=== PATIENT | female | born 1935 | race Caucasian/White ===

== ENCOUNTER 2019-02-11 18:18 | Inpatient (IN) | payer OTHER ==
[2019-02-11 19:07] LABS: PLATELET COUNT 427 10^3/uL (150-400)
--- NOTE | 2019-02-11 19:18 | EDPHY ---
H & P Stated Complaint: multiple complaints, here for admission for work up Time Seen by Provider: 02/11/19 18:50 HPI/ROS: CHIEF COMPLAINT: Multiple complaints, sent to the ER for admission HISTORY OF PRESENT ILLNESS: 83-year-old female medical history significant for hypertension, insomnia, self describes as highly active which has been progressively decreasing for the past several months, proximal August 2018 she describes that she typically use toe walk a brisk 3 miles however now only walks 1 mi to per day. She notes insomnia, typically sleeps 3-4 hr per day. Was started on Ambien 2 weeks ago however this is not assisted. She has had decreased appetite in describes being "this interested in life". She had outpatient evaluation by her PCP she saw today and recommend she go to the ER for evaluation admission to the hospital. She was noted to be hyponatremic 128 on last blood draw. She has been water restricting. PRIMARY CARE PROVIDER: Gary Marie at [facility] Medical REVIEW OF SYSTEMS: 10 systems reviewed and negative with the exception of the elements mentioned in the history of present illness PAST MEDICAL & SURGICAL HISTORY: Hypertension. Insomnia. SOCIAL HISTORY:Lives with 50-year-old son. No alcohol no drug use. PHYSICAL EXAM (Prior to examination, patient consented to physical exam, hands were washed and my usual and customary physical exam procedures followed) 1) GENERAL: Well-developed, well-nourished, alert and oriented. Somnolent. 2) HEAD: Normocephalic, atraumatic 3) HEENT: Pupils equal, round, reactive to light bilaterally. Sclera anicteric. Nasopharynx, oropharynx, clear, no lesions. Dry mucous membranes. Ears bilaterally with normal tympanic membranes. 4) NECK: Full range of motion, no meningeal signs. 5) LUNGS: Clear auscultation bilaterally, no wheezes, no rhonchi, no retractions. 6) HEART: Regular rate and rhythm, no murmur, no heave, no gallop. 7) ABDOMEN: No guarding, no rebound, no focal tenderness, negative McBurney's, negative Alarcon's, negative Rovsing's, negative peritoneal sign, 8) MUSCULOSKELETAL: Moving all extremities, no focal areas of tenderness, no obvious trauma. No peripheral edema or discoloration. 9) BACK: No CVA tenderness, no midline vertebral tenderness, no fluctuance, no step-off, no obvious trauma, no visual or palpable abnormality. 10) SKIN: No rash, no petechiae. 11) Psychiatric: Patient is oriented X 3, there is no agitation. She is somnolent. 12) NEURO: Awake, alert, and oriented to person, place and time. Answers questions appropriately. There were no obvious focal neurologic abnormalities. No cerebellar dysfunction. Cranial nerves 2 through to 12 intact. Normal steady gait. Upper and lower extremities bilaterally with strength 5 / 5, reflexes 2+. DIFFERENTIAL DIAGNOSIS: In no particular order including but not limited to cardiac dysrhythmia, electrolyte imbalance, hyponatremia, infectious etiology - Medical/Surgical History Hx Asthma: No Hx Chronic Respiratory Disease: No Hx Diabetes: No Hx Cardiac Disease: Yes Hx Renal Disease: No Hx Cirrhosis: No Hx Alcoholism: No Hx HIV/AIDS: No Hx Splenectomy or Spleen Trauma: No Other PMH: HTN, insomnia - Social History Smoking Status: Never smoked Constitutional: Initial Vital Signs Temperature (C) 36.7 C 02/11/19 18:21 Heart Rate 71 02/11/19 18:21 Respiratory Rate 18 02/11/19 18:21 Blood Pressure 152/92 H 02/11/19 18:21 O2 Sat (%) 96 02/11/19 18:21 O2 Delivery Mode Room Air Allergies/Adverse Reactions: No Known Allergies Allergy (Verified 02/11/19 18:20) Home Medications: Medication Instructions Recorded Diovan 07/29/11 Ambien 02/11/19 Effexor Xr 02/11/19 amLODIPine BESYLATE 02/11/19 Medical Decision Making ED Course/Re-evaluation: 7:17 p.m.: Critical lab value sodium 118 called from laboratory at this time. Patient remains water restricted, no IV fluids will be given at this time. Checking further diagnostic studies and will plan on admission. Care of patient under supervision of secondary supervising physician Dr Bush with whom I discussed case. 8:10 p.m.: Consultation Dr. Evelina Garcia who will admit patient 8:20 p.m.: Consultation with Nephrology Dr. Jalloh who will consult - Data Points Laboratory Results: Laboratory Results 02/11/19 18:47 02/11/19 18:47 02/11/19 02/11/19 18:47 18:47 WBC 8.81 10^3/uL 10^3/uL (3.80-9.50) RBC 4.61 10^6/uL 10^6/uL (4.18-5.33) Hgb 13.2 g/dL g/dL (12.6-16.3) Hct 37.6 % L % (38.0-47.0) MCV 81.6 fL fL (81.5-99.8) MCH 28.6 pg pg (27.9-34.1) MCHC 35.1 g/dL g/dL (32.4-36.7) RDW 12.4 % % (11.5-15.2) Plt Count 427 10^3/uL H 10^3/uL (150-400) MPV 8.7 fL fL (8.7-11.7) Neut % (Auto) 60.8 % % (39.3-74.2) Lymph % (Auto) 27.1 % % (15.0-45.0) [place] % (Auto) 10.4 % % (4.5-13.0) Eos % (Auto) 0.5 % L % (0.6-7.6) Baso % (Auto) 0.6 % % (0.3-1.7) Nucleat RBC Rel Count 0.0 % % (0.0-0.2) Absolute Neuts (auto) 5.36 10^3/uL 10^3/uL (1.70-6.50) Absolute Lymphs (auto) 2.39 10^3/uL 10^3/uL (1.00-3.00) Absolute Monos (auto) 0.92 10^3/uL H 10^3/uL (0.30-0.80) Absolute Eos (auto) 0.04 10^3/uL 10^3/uL (0.03-0.40) Absolute Basos (auto) 0.05 10^3/uL 10^3/uL (0.02-0.10) Absolute Nucleated RBC 0.00 10^3/uL 10^3/uL (0-0.01) Immature Gran % 0.6 % % (0.0-1.1) Immature Gran # 0.05 10^3/uL 10^3/uL (0.00-0.10) Sodium 118 mEq/L L* mEq/L (135-145) Potassium 3.6 mEq/L mEq/L (3.5-5.2) Chloride 83 mEq/L L mEq/L (97-110) Carbon Dioxide 23 mEq/l mEq/l (22-31) Anion Gap 12 mEq/L mEq/L (6-14) BUN 7 mg/dL mg/dL (7-23) Creatinine 0.5 mg/dL L mg/dL (0.6-1.0) Estimated GFR > 60 Glucose 105 mg/dL H mg/dL (70-100) Calcium 9.2 mg/dL mg/dL (8.5-10.4) Total Bilirubin 0.8 mg/dL mg/dL (0.1-1.4) Conjugated Bilirubin 0.1 mg/dL mg/dL (0.0-0.5) Unconjugated Bilirubin 0.7 mg/dL mg/dL (0.0-1.1) AST 26 IU/L IU/L (14-46) ALT 26 IU/L IU/L (9-52) Alkaline Phosphatase 83 IU/L IU/L (38-126) Total Protein 7.5 g/dL g/dL (6.3-8.2) Albumin 4.7 g/dL g/dL (3.5-5.0) TSH 2.200 uIU/mL uIU/mL (0.465-4.680) Ethyl Alcohol < 10 mg/dL mg/dL (0-10) Departure - Departure Disposition: [facility] Acute Clinical Impression: Hyponatremia
[2019-02-11] MEDS ORDERED: ACETAMINOPHEN 325 MG TAB PO PRN (20:32)
[2019-02-11] MEDS ORDERED: ONDANSETRON DISINTEGRATING 4 MG TAB PO PRN (20:32)
[2019-02-11] MEDS ORDERED: ONDANSETRON 4 MG/2 ML VIAL IVP PRN (20:32)
[2019-02-11] MEDS ORDERED: traZODone 50 MG TAB PO PRN (21:49)
--- NOTE | 2019-02-11 22:36 | GHP ---
[f rep st] HISTORY AND PHYSICAL DATE OF ADMISSION: 02/11/2019 CHIEF COMPLAINT: Weakness, fatigue, hyponatremia. HISTORY OF PRESENT ILLNESS: An 83-year-old female with insomnia, hypertension, depression, sent over by her PCP Dr. Marie for hyponatremia. Her lab was last checked 01/23/2019 and was 128. At that time, she was told she should restrict her fluids. She states she has been drinking less than a glass of water a day and has been drinking some Pedialyte. Has felt very fatigued and not like herself. Nauseated for the past 4 days. Of note, she was started on antidepressants about 10 days ago. Initially, Zoloft, which she did not like, thus was switched to Effexor. 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 She denies fevers, chills, or sweats. No dysuria. Her son is at bedside says she has been confused and not getting out of bed. REVIEW OF SYSTEMS: I completed a 10-point review of systems, negative except in HPI. PAST MEDICAL HISTORY: 1. UTI in October, followed by 6 weeks of diarrhea which resolved. 2. Insomnia. 3. Hypertension. 4. Depression. PAST SURGICAL HISTORY: None. FAMILY HISTORY: Hypertension. HOME MEDICATIONS: Effexor, Ambien, Norvasc. ALLERGIES: None. PHYSICAL EXAMINATION: VITAL SIGNS: Temperature 37.0, blood pressure 158/79, heart rate in the 60s, respirations 18, 96% on room air. GENERAL: She is a fatigued. HEENT: Dry mucous membranes. CV: Regular rate and rhythm. LUNGS: Clear. ABDOMEN: Soft, nontender. : No suprapubic tenderness. MUSCULOSKELETAL: She is moving all 4 extremities. SKIN: Warm, dry. Poor skin turgor. NEURO: She is alert and oriented x3, but slow to answer questions. LABS: 1. WBC 8, hemoglobin 13, hematocrit 37, platelets 427. UA negative. Urine studies pending. Sodium 118, potassium 3.6, chloride 86, anion gap 12, creatinine 0.5, glucose 105. Serum Osmo pending. LFTs within normal. TSH 2.2. 2. EKG is personally reviewed by me normal sinus rhythm, LVH. ASSESSMENT AND PLAN: 1. Symptomatic hyponatremia: Sodium 118. Suspect multifactorial with decreased solute and fluid intake. Was also started on Effexor about 10 days ago, which can cause SIADH. Urine studies. Dr. Jalloh with Nephrology has been consulted. Will follow up on labs and start fluids. Serial every 4 hours BMPs. 2. Insomnia. Trazodone. 3. Hypertension. Norvasc. 4. Depression. will need to work with her PCP on an agent that is helpful and not contributing to hyponatremia. 5. Diet: N.p.o. for now. 6. Deep venous thrombosis prophylaxis: Lovenox. DISPOSITION: Patient warrants ICU admission for severe hyponatremia warranting serial labs, IV fluids, and Nephrology consult. CRITICAL CARE TIME SPENT: 60 minutes at bedside, evaluating patient, obtaining history from son and discussing case with Nephrology. /[id number]/MODL MTDD
--- NOTE | 2019-02-12 07:54 | PDMN ---
Medical Necessity Medical necessity: Pt meets inpt criteria per MD order and systemic or Infectious Condition GRG, Hyponatremia, severe and symptomatic w/sodium of 118 requiring SDU care. 83 y/o presented w/ 4 days of nausea and fatigue, has had decreased solute and fluid intake, recently started on Effexor for depression. NPO, IVF, sereial labs, urine studies, nephrology consult today. Est LOS>2MN for ongoing eval/management of severe hyponatremia.
[2019-02-12] MEDS: SODIUM CHLORIDE 1,000 MG TAB PO SCH ×3 (09:33→21:56)
[2019-02-12] MEDS: ENOXAPARIN 40 MG/0.4 ML SYR SC SCH (09:33)
--- NOTE | 2019-02-12 14:43 | GCON ---
[f rep st] CONSULTATION NEPHROLOGY CONSULTATION DATE OF CONSULTATION: 02/12/2019 REASON FOR CONSULTATION: Hyponatremia. HISTORY OF PRESENT ILLNESS: I have been asked to evaluate this patient regarding her hyponatremia. She is an 83-year-old woman with a history of hypertension as well as what sounds like chronic hypona tremia. She describes an episode in 2006 when she presented with a serum sodium of less than 120. S he was apparently on a diuretic at that time, and this was discontinued. She states that her serum s odium since then has never been much above 130, though there is very little data available to confirm this. She believes she may have had another episode of more severe hyponatremia attributed to [place] on use in the past. The only sodiums in the current medical record at [facility] are 1 33 in November of 2009 and 128 on January 23 of this year. She reports having labs drawn recently at a [facility] and being told that her sodium was low there. She apparently received IV fluids a nd was told to limit her fluid intake. She was trying to drink Pedialyte instead of water since then but has been feeling poorly overall for several weeks. Over the past 4-5 days, she has had signific ant nausea and has been eating less than usual. I believe she had labs drawn as an outpatient docume nted as sodium of less than 120 and was subsequently referred to the ER. Here, her initial sodium wa s 118 at 6:45 p.m. She has been on a fluid restriction and was started on sodium chloride tablets th is morning. Her sodium has increased to 122 as of 11 o'clock this morning. She feels essentially th e same as she did yesterday, though her nausea is perhaps a bit better. Initial urine chemistries night documented an elevated urine osmolality of 488 and elevated urine sodium of 138. Repeat uri ne chemistries this morning reveal a urine sodium of 18 and urine osmolality of 217. She does have a history of hypothyroidism, but TSH on admission was normal. She adamantly denies any recent diureti c use. She was recently started on antidepressants, though from her description, it sounds as though this was within the past 10 days or so. These have been discontinued. PAST MEDICAL HISTORY: 1. Hypertension. 2. Chronic hyponatremia. 3. Depression. 4. Insomnia. 5. Hypothyroidism. 6. Urinary tract infection earlier this year followed by intermittent diarrhea. PAST SURGICAL HISTORY: None. ALLERGIES: No known drug allergies. ADMISSION MEDICATIONS: Effexor 37.5 mg daily, amlodipine 10 mg daily, Ambien at bedtime. She also b quaneves she was taking Diovan, but this is not on her admission medication list. FAMILY HISTORY: Negative for renal disease that she is aware of. SOCIAL HISTORY: She is a nonsmoker, nondrinker. She lives with her son. REVIEW OF SYSTEMS: Positive for nausea, weakness, malaise, intermittent diarrhea. She denies any pa in, specifically chest pain. She denies any shortness of breath or fevers. In general, she just fee ls "poorly." Aside from other positives in the HPI, the remainder of a 10-organ system review is neg ative. PHYSICAL EXAM: GENERAL: She is frail appearing, with extremely flat affect, but is in no acute dist ress. VITAL SIGNS: Blood pressure 107/47, heart rate is 63, she is afebrile. Urine output since ad mission has been 775 cc, intake has not been charted. HEENT: Sclerae are anicteric. Oral mucosa is moist, oropharynx is clear. NECK: Supple without JVD or lymphadenopathy. No carotid bruits. LUNG S: Clear to auscultation bilaterally. BACK: No CVA tenderness. HEART: Regular rate and rhythm wi thout murmurs, gallops, rubs. ABDOMEN: Soft, nontender with normoactive bowel sounds. I cannot juliana reciate hepatosplenomegaly, masses, or bruits. EXTREMITIES: There is no lower extremity edema. Fee t are warm and appear well perfused. SKIN: No skin rashes. NEURO: She is awake, alert, and approp riate, though her affect is quite flat as noted above. There is no facial droop. : Kam cathete r is absent. LABORATORY DATA: Most recent chemistries show sodium 122, potassium 3.9, chloride 87, CO2 24, BUN 10 , creatinine 0.6, glucose 121, calcium 9.1. On admission, her creatinine was 0.5 with a BUN of 7, al bumin of 4.7, and total protein of 7.5, TSH of 2.2. In 2009, her TSH was 35.4, and her creatinine wa s 0.8. White blood cell count is 8.8, hemoglobin 13.2, platelets 427. Urinalysis was negative aside from positive ketones. Urine osmolality and random urine sodium were as described above. Blood alc ohol level was negative. IMAGING DATA: No imaging has been performed. IMPRESSION AND PLAN: 1. Hyponatremia: This appears to be an acute exacerbation of chronic more mild condition. She desc ribes multiple issues with hyponatremia in the past, and though preexisting data is limited, her prio r sodiums ranging from the high 120s to low 130s does corroborate this. She now presents with signif icant decreased below her baseline, the reason for this is not completely clear at the moment. Her i nitial urine studies were consistent with syndrome of inappropriate antidiuretic hormone. However, r epeat studies this morning were significantly different and not at all consistent with syndrome of in appropriate antidiuretic hormone. Her serum albumin on admission was not consistent with malnutritio n or low solute diet. Her creatinine appears to be below her prior baseline of 0.8, this would be co nsistent with syndrome of inappropriate antidiuretic hormone. It is possible that either her nausea or her recent initiation of antidepressive therapy caused a transient antidiuretic hormone release wh ich provoked her presenting serum sodium. This could potentially explain the change in her urine sravani humphrey from yesterday evening to this morning, though this does not typically resolve so quickly. Cu rrently, her serum sodium is increasing appropriately with oral fluid restriction alone and sodium ch loride tablets. I would simply continue this therapy for the time being, with a goal of a serum sodi um of approximately 126 at 6 or 7 o'clock this evening. Once she reaches this level, frequent labs c an be discontinued. Currently, she is having labs checked every 4 hours, this is appropriate for now . The TSH was normal on admission, I would like to check a random cortisol, particularly since her b lood pressure appears to be running significantly lower than her stated baseline. I would continue t o avoid intravenous fluids for now. I would continue her 1000 cc per day oral fluid restriction and her current salt tablets which are 1000 mg 3 times daily. It remains to be seen exactly how much the rapy for this she will require on discharge. I will repeat urine chemistries tomorrow morning in an effort to clarify this picture as well, as this will help significantly in clarifying the underlying etiology. 2. Hypertension: Her amlodipine has been held, and her blood pressure is extremely well controlled. On physical exam, she appears as though she may be slightly volume deplete, though her serum creati nine is not consistent with this. I would not administer intravenous fluids. I would continue to ho ld her antihypertensives. She adamantly denies any diuretic use as noted above. Thank you for the consultation. We will follow with you. /[id number]/MODL
--- NOTE | 2019-02-12 14:50 | HOSPPROG ---
Hospitalist Progress Note Assessment/Plan: 1. Symptomatic Hyponatremia - Na 116 on admission, likely multifactorial with decreased PO intake, possible SIADH from Effexor - Initial urine studies consistent with SIADH, repeat studies ordered for tomorrow AM, also PM Cortisol added by Nephrology - Nephrology consulted, recommended fluid restriction 1L, NaCl tablets 1000 mg TID - Na improved overnight to 121, afternoon level pending - Continue to monitor Na closely, currently q4hrs - Goal ~126 this evening, not to exceed >8meq in 24 hours 2. Insomnia - Continue Trazodone 3. HTN - Continue Norvasc 4. Depression - Was placed on Effexor recently, possibly contributing to hyponatremia - Recommend f/u with PCP to choose different agent FEN: 1L Fluid restriction Code: FULL DVT PPx: Lovenox Dispo: Pending clinical course Subjective: Pt reports feeling mild nausea this AM Objective: Vital Signs Temp Pulse Resp BP Pulse Ox 36.4 C 63 21 H 107/47 L 93 02/12/19 12:00 02/12/19 12:00 02/12/19 12:00 02/12/19 12:00 02/12/19 07:36 02/11/19 02/12/19 02/13/19 05:59 05:59 05:59 Intake Total 0 Output Total 475 300 Balance -475 -300 - Physical Exam Constitutional: no apparent distress Eyes: PERRL Ears, Nose, Mouth, Throat: dry mucous membranes Cardiovascular: regular rate and rhythym Respiratory: no respiratory distress Gastrointestinal: soft, non-tender abdomen Skin: warm Musculoskeletal: full muscle strength Neurologic: AAOx3 Psychiatric: interacting appropriately ICD10 Worksheet Patient Problems: Problems Problem Status Onset Hyponatremia Acute
--- NOTE | 2019-02-12 15:32 | ASMTCMCOM ---
CM Note CM Note Notes: Spoke w/RN and reviewed chart, pt admitted for hyponatremia by her PCP. Per son, pt has been confused and not wanting to get out of bed. Pt is otherwise independent per RN and no therapies are ordered, anticipate she will dc home w/support of son when medically stable. CM available should her needs change. DC Plan: Independent Date Signed: 02/12/2019 03:32 PM Electronically Signed By:Dinora Christian RN
[2019-02-12] MEDS: TEMAZEPAM 15 MG CAP PO PRN (23:55)
[2019-02-13] MEDS: SODIUM CHLORIDE 1,000 MG TAB PO SCH ×3 (08:00→21:24)
[2019-02-13] MEDS: ENOXAPARIN 40 MG/0.4 ML SYR SC SCH (08:35)
--- NOTE | 2019-02-13 13:50 | SOAPPROG ---
SOAP Progress Note Assessment/Plan: Assessment/Plan: Hyponatremia: acute on chronic. Na now up to 127, cooper an appropriate rate of rise. Her initial urine studies were consistent with SIADH but repeat urine studies x2 do not confirm this, possible that she had a transient rise in ADH release in setting of illness. Also possible that SSRI contributed. - Agree with holding SSRI. - TSH and cortisol unrevealing. - Will continue 1L fluid restriction and salt tabs for now. - Will continue to monitor BID. - Will plan to f/u in nephrology clinic after discharge for further monitoring. HTN: BP well controlled on amlodipine alone,, recommend she hold her home Diovan for now. Subjective: No acute events overnight. Pt states that she is feeling well, no N/V, just took a shower. Objective: Vital Signs Temp Pulse Resp BP Pulse Ox 36.9 C 76 16 135/69 H 91 L 02/13/19 08:00 02/13/19 12:00 02/13/19 12:00 02/13/19 12:00 02/13/19 12:00 Laboratory Results 02/13/19 04:46 02/12/19 02/13/19 02/14/19 05:59 05:59 05:59 Intake Total 0 1000 Output Total 475 900 Balance -475 100 General: alert and oriented, no acute distress Eyes: EOMI, PERRL OP: Clear CV: RRR Resp: nonlabored respirations Abd: Soft, NT/ND Ext: no edema BLE Neuro: CN II-XII Grossly intact, no asterixis Psych: cooperative, appropriate mood and affect ICD10 Worksheet Patient Problems: Problems Problem Status Onset Hyponatremia Acute
--- NOTE | 2019-02-13 14:46 | HOSPPROG ---
Hospitalist Progress Note Assessment/Plan: 1. Symptomatic Hyponatremia - Na 116 on admission, likely multifactorial with decreased PO intake, possible SIADH from Effexor - Initial urine studies consistent with SIADH, repeat studies inconsistent, also PM Cortisol added by Nephrology WNL - Nephrology consulted, recommend continuing fluid restriction 1L, NaCl tablets 1000 mg TID - Na improved to 127 this AM, next level for 8 PM tonight to avoid overcorrection - Continue to monitor Na closely, Nephrology recommending BID for now 2. Insomnia - Continue Restoril, patient reports best night of sleep in recent past last night 3. HTN - Continue Norvasc 4. Depression - Was placed on Effexor recently, possibly contributing to hyponatremia - Recommend f/u with PCP to choose different agent FEN: 1L Fluid restriction Code: FULL DVT PPx: Lovenox Dispo: Pending clinical course Subjective: Pt reports feeling much improved this AM Objective: Vital Signs Temp Pulse Resp BP Pulse Ox 36.4 C 66 16 120/63 96 02/13/19 14:14 02/13/19 14:14 02/13/19 14:14 02/13/19 14:14 02/13/19 14:14 Laboratory Results 02/13/19 04:46 02/12/19 02/13/19 02/14/19 05:59 05:59 05:59 Intake Total 0 1000 Output Total 475 900 Balance -475 100 - Physical Exam Constitutional: no apparent distress Eyes: PERRL Ears, Nose, Mouth, Throat: moist mucous membranes Cardiovascular: regular rate and rhythym Respiratory: no respiratory distress Gastrointestinal: soft, non-tender abdomen Skin: warm Musculoskeletal: full muscle strength Neurologic: AAOx3 Psychiatric: interacting appropriately ICD10 Worksheet Patient Problems: Problems Problem Status Onset Hyponatremia Acute
[2019-02-13] MEDS: TEMAZEPAM 15 MG CAP PO PRN (21:59)
--- NOTE | 2019-02-14 07:43 | SOAPPROG ---
SOAP Progress Note Assessment/Plan: Assessment: hyponatremia, likely due to SSRI sodium much improved bp well controlled Plan: avoid SSRI follow u with Dr. Villar in 1-2 weeks weekly renal panel until she sees Dr. Villar continue Nacl tabs continue anti HTN meds as is for now Renal signing off 02/14/19 07:40 02/14/19 07:43 Subjective: slept well with restoril last night no cp sob nausea or vomiting denies pain or SOB feels rested spirits good Objective: Vital Signs Temp Pulse Resp BP Pulse Ox 36.5 C 72 16 113/52 L 95 02/13/19 20:00 02/13/19 20:00 02/13/19 20:00 02/13/19 20:00 02/13/19 20:00 Laboratory Results 02/13/19 19:41 02/13/19 02/14/19 02/15/19 05:59 05:59 05:59 Intake Total 1000 1000 Output Total 900 Balance 100 1000 Physical Exam - Physical Exam General Appearance: alert, thin Neck: normal inspection Respiratory: No rhonchi, No wheezing Cardiac/Chest: regular rate, rhythm, No edema, No friction rub Abdomen: normal bowel sounds, non-tender, soft Skin: warm/dry Extremities: No swelling Neuro/Psych: alert, normal mood/affect, oriented x 3 ICD10 Worksheet Patient Problems: Problems Problem Status Onset Hyponatremia Acute
[2019-02-14 08:27] VITALS: BP 133/79
[2019-02-14] MEDS: ENOXAPARIN 40 MG/0.4 ML SYR SC SCH (09:08)
[2019-02-14] MEDS: SODIUM CHLORIDE 1,000 MG TAB PO SCH ×2 (09:08→15:47)
--- NOTE | 2019-02-14 11:57 | HOSPPROG ---
Hospitalist Progress Note Assessment/Plan: Sofia is an 83 y/o woman who was sent to the ER by her PCP due to low Na levels. First encounter, chart reviewed. *hyponatremia -secondary from Effexor most likely -cont salt tabs, fluid restrict -f/u w Dr Villar -Na 132 today * Insomnia -patient requesting Restoril at dc (explained it increases risk of falling0 -will give her a few doses at dc -recommended OP f/u with a sleep specialist * HTN - Continue Norvasc * Depression - Was placed on Effexor recently, possibly contributing to hyponatremia - Recommend f/u with PCP to choose different agent *plan: will check on Briana again today, feeling poorly and lethargic today. If better this afternoon, will dc. Subjective: Briana is tired, not feeling as well as yesterday. Objective: Vital Signs Temp Pulse Resp BP Pulse Ox 36.6 C 83 16 133/79 H 97 02/14/19 08:00 02/14/19 08:00 02/14/19 08:00 02/14/19 09:08 02/14/19 08:00 Laboratory Results 02/14/19 07:53 02/13/19 02/14/19 02/15/19 05:59 05:59 05:59 Intake Total 1000 1000 Output Total 900 Balance 100 1000 - Physical Exam Constitutional: no apparent distress, other (thin) Eyes: PERRL Ears, Nose, Mouth, Throat: hearing normal Cardiovascular: regular rate and rhythym Respiratory: no respiratory distress Skin: warm Musculoskeletal: full muscle strength Neurologic: AAOx3 Psychiatric: interacting appropriately ICD10 Worksheet Patient Problems: Problems Problem Status Onset Hyponatremia Acute
--- NOTE | 2019-02-14 16:34 | GDS ---
[f rep st] DISCHARGE SUMMARY DISCHARGE DIAGNOSES: 1. Hyponatremia. 2. Insomnia. 3. Hypertension. 4. Depression. CONSULTATION: Dr. Villar with nephrology. Briefly, the patient is an 83-year-old woman with a history of insomnia, hypertension, depression, sent over by her primary care doctor for a low sodium. Her labs were checked on January 23, in which her sodium was 128. She was told to restrict her fluids. Antidepressants had been started 10 days prior. On admission, her sodium was noted to be 118. She was seen and evaluated by Nephrology. She was fluid restricted and also placed on salt tabs. Her sodium has improved throughout her stay. She will follow up with Dr. Villar in the outpatient setting. HOSPITAL COURSE PER PROBLEM: 1. Hyponatremia. This is likely due to the SSRI. Our recommendation is not to resume this. Will have her get weekly renal panels till she sees Dr. Villar. Also recommendations for her stay on the salt tabs and fluid restrict. 2. Insomnia. She has done really well with Restoril, but was quite sedate this morning and felt groggy. I have given her 3 doses at a lower dose and will see how she does with this. She has also been taking Ambien. I told her do not take Ambien while on the Restoril and to have her doctor refill if this works. 3. Hypertension, on Norvasc. 4. Depression. Recommend followup with her primary care provider to choose a different medication. DISCHARGE CONDITION: Stable. Blood pressure is 133/79, heart rate of 83, respiratory rate of 16, O2 sat on room air 97%, temperature is 36.6 Celsius. MEDICATIONS AT DISCHARGE: Please see the EMR. DISCHARGE INSTRUCTIONS: 1. Stop the Effexor, talk to her doctor about another antidepressant. 2. Try the Restoril for the next few nights. Do not take Ambien while on this. 3. Fluid restrict and take salt tabs. 4. Follow up with Dr. Villar. 5. Recommend she go to a sleep clinic to help her with her insomnia. 6. Get a chemistry panel next week. Greater than 30 minutes discharging and coordinating her care. /[id number]/MODL MTDD
--- NOTE | 2019-02-18 20:54 | CPEKG ---
Test Reason : OPEN Blood Pressure : / mmHG Vent. Rate : 068 BPM Atrial Rate : 068 BPM P-R Int : 176 ms QRS Dur : 097 ms QT Int : 409 ms P-R-T Axes : 065 009 088 degrees QTc Int : 436 ms Sinus rhythm Probable left ventricular hypertrophy Confirmed by Kwabena Bush ([id number]) on 02/18/2019 8:53:49 PM Referred By: Kwabena Bush Confirmed By:Kwabena Bush
== END 2019-02-14 17:06 | disposition home or self-care (01) | DRG 641 ==
LOC: OBSVTOIN 20:32 → F2N 21:47 → F3E 02-13 14:09
PROVIDERS: ADMIT Internal Medicine; ATTEND Internal Medicine
DX: E87.1 Hypo-osmolality and hyponatremia (principal); T43.215A Adverse effect of selective serotonin and norepinephrine reuptake inhibitors, initial encounter; I10 Essential (primary) hypertension; G47.00 Insomnia, unspecified; F32.9 Major depressive disorder, single episode, unspecified; E03.9 Hypothyroidism, unspecified; Z87.440 Personal history of urinary (tract) infections
CPT/HCPCS: G0480; J1650